=== PATIENT | female | born 2000 | race Caucasian/White ===

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

== ENCOUNTER → 2022-10-04 | Outpatient (REF) ==
[~2022-10-04] MED LIST changes: -FLUC150T PO; +FLUC150T9 PO; -MONT10TA2 PO; +MONT10TA97 PO; +PARA1IUD IU; -PARAIUD IU
[2022-10-04 15:09] LABS: RSV AMPLIFICATION NEGATIVE (NEGATIVE)
== END ==
LOC: M EMP 14:10
PROVIDERS: ATTEND Family Medicine
DX: Z20.828 Contact with and (suspected) exposure to other viral communicable diseases (principal)

== ENCOUNTER → 2023-02-02 | Outpatient (REF) | LOC: M EMP 11:49 | PROVIDERS: ATTEND Family Medicine | DX: Z11.52 Encounter for screening for COVID-19 (principal) ==

== ENCOUNTER → 2023-11-18 | Outpatient (REF) | LOC: M EMP 16:50 | PROVIDERS: ATTEND Family Medicine | DX: Z01.89 Encounter for other specified special examinations (principal) ==